=== PATIENT | male | born 1965 | race Caucasian/White ===

== ENCOUNTER 2017-08-23 10:03 | Emergency (ER) | payer OTHER ==
[~2017-08-23] VITALS: Ht 165.1 cm; Wt 90.5 kg
[~2017-08-23 10:03] MED LIST: AMLO5 PO; AMLO5TAB22 PO; ATOR20TA PO; ATOR20TA42 PO; BENZ1 PO; BENZ1TAB PO; DEPA500T3 PO; DIVA250ER PO; DIVA250T PO; HALO5TAB PO; LEVO.025 PO; LISI-591 PO; LISI20 PO; RISP2TAB2 PO; RISP3 PO; TEMA15 PO
[2017-08-23 10:04] VITALS: BP 151/73; PULSE 90; RESP 18; TEMP 97.4; O2SAT 97
[2017-08-23] MEDS ORDERED: DICL75TA PO (10:28)
--- NOTE | 2017-08-23 10:28 | PD ---
HPI Chief Complaint: Injury Time Seen by Provider: 10:13 Travel History International Travel<30 days: No Contact w/Intl Traveler<30days: No Traveled to known affect area: No History of Present Illness HPI 51-year-old male that presents to the ED for evaluation of right rib pain after injury. Per patient he was playing with a friend in wrestling and there were chest bumping. Per patient this happened 2 days ago. Per patient he didn't think much of it but the pain on the right ribs has been worsening. He denies any numbness, tilling, weakness. No shortness of breath with it. Gets worse with deep breaths. Patient present with touch only in the right chest. No back pain. No headache. No blood thinner use. Pain per patient is 8 out of 10. Has not seen anybody for this. No other medical issues at this time. PFSH Past Medical History Bipolar Disorder: Yes Depression: Yes Cancer: No Cardiovascular Problems: No High Cholesterol: Yes Diabetes: No Diminished Hearing: No Endocrine: No Gastrointestinal Disorders: No Genitourinary: No Headaches: No Hypertension: Yes Immune Disorder: No Implanted Vascular Access Dvce: No Musculoskeletal: No Neurologic: No Psychiatric: Yes (Schizoaffective Disorder) Reproductive: No Respiratory: No Schizophrenia: Yes Seizures: No Thyroid Disease: Yes Past Surgical History Other Surgery: No (DENIES) Social History Alcohol Use: Yes (FORMER ALCOHOLIC / NOW OCCASIONALLY) Tobacco Use: Yes (1.5-2 PPD (CIGARS)) Sub[facility]: Yes [facility] Allergies-Medications (Allergen,Severity, Reaction): Coded Allergies: No Known Allergies (Unverified , 03/30/16) Reported Meds & Prescriptions Reported Meds & Active Scripts Active Restoril 15 mg (Temazepam) 15 Mg Cap 30 Mg PO HS PRN Risperdal (Risperidone) 3 Mg Tab 3 Mg PO BID 14 Days Prinivil 20 mg (Lisinopril) 20 Mg Tab 20 Mg PO DAILY 14 Days Levothyroxine Sodium 25 Mcg Tab 25 Mcg PO DAILY@06 [address] (Divalproex Sodium) 250 Mg Tab 750 Mg PO HS 14 Days Depakote (Divalproex Sodium) 500 Mg Dasha 500 Mg PO DAILY 14 Days Benztropine Mesylate 1 Mg Tab 1 Mg PO Q12HR 14 Days Lipitor 20 Mg Tab (Atorvastatin) 20 Mg Tab 20 Mg PO HS 14 Days Norvasc (Amlodipine Besylate) 5 Mg Tab 5 Mg PO DAILY 14 Days Reported Haloperidol 5 Mg Tab 5 Mg PO BID Depakote ER 500 mg (Divalproex Sodium) 500 Mg Tab 1 Tab PO HS Depakote ER 250 mg (Divalproex Sodium) 250 Mg Dasha 1 Tab PO DAILY Benztropine Mesylate 1 Mg Tab 1 Mg PO Q12H Levothyroxine 25 mcg (Levothyroxine Sodium) 25 Mcg Tab 25 Mcg PO DAILY Zestril 20 mg (Lisinopril) 20 Mg Tab 20 Mg PO DAILY Risperdal (Risperidone) 2 Mg Tab 2 Mg PO DAILY Atorvastatin 20 mg tab (Atorvastatin Calcium) 20 Mg Tab 20 Mg PO HS Amlodipine Besylate 5 mg (Amlodipine Besylate) 5 Mg Tab 5 Mg PO DAILY Review of Systems Except as stated in HPI: all other systems reviewed are Neg Physical Exam Narrative GENERAL: SKIN: Warm and dry. HEAD: Atraumatic. Normocephalic. EYES: Pupils equal and round. No scleral icterus. No injection or drainage. ENT: No nasal bleeding or discharge. Mucous membranes pink and moist. Tongue is midline. No uvula deviation. NECK: Trachea midline. No JVD. CARDIOVASCULAR: Regular rate and rhythm. RESPIRATORY: No accessory muscle use. Clear to auscultation. Breath sounds equal bilaterally. GASTROINTESTINAL: Abdomen soft, non-tender, nondistended. Hepatic and splenic margins not palpable. MUSCULOSKELETAL: Extremities without clubbing, cyanosis, or edema. No obvious deformities. Full range of motion of the upper and lower extremities bilaterally. 2+ pulses bilaterally. Patient has reproducible pain on the right chest. NEUROLOGICAL: Awake and alert. No obvious cranial nerve deficits. Motor grossly within normal limits. Five out of 5 muscle strength in the arms and legs. Normal speech. PSYCHIATRIC: Appropriate mood and affect; insight and judgment normal. Data Data Last Documented VS Vital Signs Date Time Temp Pulse Resp B/P (MAP) Pulse Ox O2 Delivery O2 Flow Rate FiO2 08/23/17 10:04 97.4 90 18 151/73 (99) 97 Room Air Orders Orders Ribs, Bilat(W/Exp Cxr-Min 4vw) (08/23/17 ) MDM Medical Decision Making Medical Screen Exam Complete: Yes Emergency Medical Condition: Yes Medical Record Reviewed: Yes Interpretation(s) X-ray of the right ribs show no sign of bony injury. Differential Diagnosis Rib contusion versus rib fracture versus pneumothorax versus normal exam Narrative Course 51-year-old male that presents to the ED for evaluation of rib injury. Patient was properly examined and was found to have signs and symptoms which appear to be consistent with likely rib contusion. X-ray was ordered. X-ray was negative for acute disease. Patient was reassured. Patient given a prescription for diclofenac sodium for discomfort. Patient agrees with plan. All questions were answered to the best of my ability. Follow with PCP. See ED for worsening symptoms. Diagnosis Primary Impression: Contusion of rib on right side Qualified Codes: S20.211A - Contusion of right front wall of thorax, initial encounter Patient Instructions: General Instructions Additional Instructions: Take medications as prescribed. Follow-up with PCP. See ED for any worsening symptoms. Apply ice or heat as needed for pain Med/Other Pt SpecificInfo: Prescription(s) given Disposition: 01 DISCHARGE HOME Condition: Stable Vasiliy Vu Aug 23, 2017 10:28
[2017-08-23] MEDS ORDERED: DEPA500T3 PO (11:29)
[2017-08-23] MEDS ORDERED: MELA5 PO (11:29)
[2017-08-23] MEDS ORDERED: BENZ0.5T PO (11:29)
[2017-08-23] MEDS ORDERED: AMLO5TAB2 PO (11:29)
[2017-08-23] MEDS ORDERED: FLUP5TAB PO (11:29)
[2017-08-23] MEDS ORDERED: DIVA250ER PO (11:29)
[2017-08-23] MEDS ORDERED: COZA50TA PO (11:29)
[2017-08-23] MEDS ORDERED: NALT50TA3 PO (11:29)
[2017-08-23] MEDS ORDERED: RISP3 PO (11:29)
[2017-08-23] MEDS ORDERED: TEMA30CA PO (11:29)
[2017-08-23] MEDS ORDERED: MOBI7.5T PO (11:29)
[2017-08-23] MEDS ORDERED: LIPI20TA PO (11:29)
[2017-08-23] MEDS ORDERED: LEVO25TA4 PO (11:29)
--- NOTE | 2017-08-23 12:02 | RADRPT ---
EXAM DATE/TIME: 08/23/2017 10:41 [facility] COMPARISON: No previous studies available for comparison. INDICATIONS : Rib pain. MEDICAL HISTORY : None. SURGICAL HISTORY : None. ENCOUNTER: Initial ACUITY: 2 days PAIN SCORE: 8/10 LOCATION: Right Ribs FINDINGS: Multiple views of both ribs were performed. There is no evidence of displaced fracture. No destruct wilfred lesions or areas of periosteal thickening are seen. Expiratory view of the chest is negative for pneumothorax. The mediastinal structures are midline. CONCLUSION: Negative for fracture. Jaguar Meyers MD FACR on August 23, 2017 at 11:57 Board Certified Radiologist. This report was verified electronically.
== END 2017-08-23 11:40 | disposition home or self-care (01) ==
LOC: NEPK 10:03
DX: S20.211A Contusion of right front wall of thorax, initial encounter (principal); Y93.72 Activity, wrestling; E78.00 Pure hypercholesterolemia, unspecified; I10 Essential (primary) hypertension; F31.9 Bipolar disorder, unspecified; F20.9 Schizophrenia, unspecified; F17.210 Nicotine dependence, cigarettes, uncomplicated
CPT/HCPCS: 71111; 99283